=== PATIENT | male | born 2000 | race Caucasian/White ===

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

== ENCOUNTER 2021-01-06 21:17 | Emergency (ER) | payer BC, OTHER ==
[2021-01-06 23:24] VITALS: BP 113/66; PULSE 47; RESP 18; TEMP 98.1
--- NOTE | 2021-01-06 23:38 | ED ---
General Adult HPI - General Chief complaint: Extremity Injury, Lower Stated complaint: R hand injury Time Seen by Provider: 01/06/21 23:26 Source: patient Mode of arrival: ambulatory - History of Present Illness Initial comments: 20 year-old male patient presents to the emergency department for evaluation of laceration to the right hand. States he states that he cut his hand when moving a washer last night around 0030. States that he cleansed the wound and tried to close it with super glue. States the super glue came apart and it started bleeding again. He is concerned about getting an infection so presented here tonight to have it closed. He denies any pain or limitation with movement of the finger. Denies any redness around the wound. Denies fever or chills. Denies any drainage. Denies any other injuries. He is unsure when his last tetanus vaccine was given. - Related Data Home Medications Medication Instructions Recorded Confirmed Loratadine [Claritin] 10 mg PO 10/18/18 Allergies Allergy/AdvReac Type Severity Reaction Status Date / Time No Known Allergies Allergy Verified 10/18/18 23:33 Review of Systems ROS Statement: Those systems with pertinent positive or pertinent negative responses have been documented in the HPI. ROS Other: All systems not noted in ROS Statement are negative. Past Medical History Past Medical History: Asthma History of Any Multi-Drug Resistant Organisms: None Reported Past Surgical History: No Surgical Hx Reported Past Psychological History: No Psychological Hx Reported Smoking Status: Never smoker Past Alcohol Use History: None Reported Past Drug Use History: None Reported General Exam General appearance: alert, in no apparent distress, other (Physical well- developed, well-nourished adult male patient in no acute distress. Vital signs upon presentation temperature 98.1F, pulse 47, respirations 18, blood pressure 113/66, pulse ox 100% on room air.) Eye exam: Present: normal appearance, PERRL, EOMI. Absent: scleral icterus, conjunctival injection, periorbital swelling ENT exam: Present: normal exam, normal oropharynx, mucous membranes moist Respiratory exam: Present: normal lung sounds bilaterally. Absent: respiratory distress, wheezes, rales, rhonchi, stridor Cardiovascular Exam: Present: regular rate, normal rhythm, normal heart sounds. Absent: systolic murmur, diastolic murmur, rubs, gallop, clicks Extremities exam: Present: full ROM, normal capillary refill, other (3cm laceration noted to the dorsal aspect of the hand near the second MCP joint. No active bleeding. No drainage. No surrounding erythema. Skin is otherwise pink, warm, dry. Cap refill less than 3 seconds. Radial pulses 2+.). Absent: tenderness, pedal edema, joint swelling, calf tenderness Neurological exam: Present: alert, oriented X3, CN II-XII intact Psychiatric exam: Present: normal affect, normal mood Skin exam: Present: warm, dry, intact, normal color. Absent: rash Course Vital Signs 01/06/21 23:21 Temperature 98.1 F Pulse Rate 47 L Respiratory 18 Rate Blood Pressure 113/66 O2 Sat by Pulse 100 Oximetry Medical Decision Making - Medical Decision Making 20-year-old male patient presents for evaluation of laceration to the left hand. States he sustained a laceration last night around 0030. Physical examination showed recently laceration of the dorsal hand near the second MCP joint. No active bleeding noted. No drainage. I did discuss with patient as the wound is over 18 hours old that we would not be closing it. He is educated regarding wound care, signs or symptoms of infection. Instructed to keep the wound covered mass emergent water. Instructed to follow-up with the primary care physician for recheck in 1-2 days. Return parameters were discussed in detail. He verbalizes understanding and agrees with this plan. My attending is Dr. Ag. Disposition Clinical Impression: Laceration of right hand Disposition: HOME SELF-CARE Condition: Good Instructions (If sedation given, give patient instructions): Laceration (ED) Additional Instructions: Cleanse twice daily with warm water and antibacterial soap. Use antibiotic ointment. Keep covered. Follow up with her primary care physician for recheck in 1-2 days. Return for any new, worsening, or concerning symptoms. Is patient prescribed a controlled substance at d/c from ED?: No Referrals: None,Stated [Primary Care Provider] - 1-2 days Time of Disposition: 23:38
[2021-01-06] MEDS: BACITRACIN OINT 1 EACH PACKET TOPICAL ONE (23:47)
[2021-01-06] MEDS: DIPH,PERTUS(ACELL)TETVAC-LF 0.5 ML VIAL IM ONE (23:48)
== END 2021-01-07 00:08 | disposition home or self-care (01) ==
LOC: EC 21:17
DX: S61.411A Laceration without foreign body of right hand, initial encounter (principal); J45.909 Unspecified asthma, uncomplicated; W26.8XXA Contact with other sharp object(s), not elsewhere classified, initial encounter; Y93.89 Activity, other specified; Z23 Encounter for immunization
CPT/HCPCS: 90471; 90715; 99282